=== PATIENT | female | born 1995 | race American Indian/Alaskan Native ===

== ENCOUNTER 2019-10-08 18:25 | Emergency (ER) | payer SELFPAY ==
[2019-10-08] MEDS ORDERED: Sodium Chloride 0.9% 10 ML Syringe FLUSH PRN (18:42)
[2019-10-08] MEDS ORDERED: MVI, Adult with Vitamin K 10 ML, Thiamine 100 MG, Folic Acid 1 MG in Lactated Ringers 1... IV ONE ×4 (18:43)
[2019-10-08 19:22] LABS: ANION GAP 12.4 mEq/L (7-13); CHLORIDE,CL 109 mmol/L (98-107); SODIUM,NA 143 mmol/L (136-145)
[2019-10-08 19:23] LABS: ACETAMINOPHEN 0 ug/mL (10-30 (Therapeutic))
[2019-10-08] MEDS ORDERED: LORazepam 2 MG/ML SDV IVPUSH ONE ×2 (19:32→19:54)
[2019-10-08] MEDS ORDERED: LORazepam 2 MG/ML SDV ONE (19:33)
[2019-10-08] MEDS ORDERED: diphenhydrAMINE 50 MG/ML SDV IVPUSH ONE (19:42)
[2019-10-08] MEDS ORDERED: Haloperidol Lactate 5 MG/ML SDV IM ONE (19:55)
[2019-10-08] MEDS ORDERED: Sodium Chloride 0.9% 1,000 ML IV ONE (20:04)
[2019-10-08] MEDS ORDERED: Midazolam 1 MG/ML 2 ML SDV IVPUSH ONE (20:04)
[2019-10-08] MEDS ORDERED: Midazolam 1 MG/ML 2 ML SDV ONE (20:10)
[2019-10-08 20:17] VITALS: BP 100/53; PULSE 92
--- NOTE | 2019-10-08 20:58 | CR ---
PROCEDURE INFORMATION: Exam: XR Chest, 1 View Exam date and time: 10/08/2019 8:49 PM Age: 24 years old Clinical indication: Other: Tube placement; Additional info: Post intubation TECHNIQUE: Imaging protocol: XR of the chest Views: 1 view. COMPARISON: No relevant prior studies available. FINDINGS: Tubes, catheters and devices: The endotracheal tube tip resides in the right mainstem bronchus. The endotracheal tube might be pulled back about 5.5 cm to position in the mid to distal trachea. The tip of the enteric tube resides in the proximal stomach. Lungs: There is moderate decreased volume and increased attenuation in the left lung diffusely. Pleural space: There are no pleural effusions present. Heart/Mediastinum: The heart is not enlarged. The pulmonary arteries are not enlarged. Bones/joints: Unremarkable IMPRESSION: 1. The tip of the endotracheal tube resides in the right mainstem bronchus. There is atelectatic change in the left lung diffusely. 2. The enteric tube tip resides in the proximal stomach.
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
== END 2019-10-08 21:07 ==
LOC: DL.ED 18:25
DX: R41.0 Disorientation, unspecified (principal); F15.10 Other stimulant abuse, uncomplicated; F10.10 Alcohol abuse, uncomplicated; Y90.8 Blood alcohol level of 240 mg/100 ml or more
CPT/HCPCS: 31500; 36415; 71045; 80053; 80305; 80307; 81001; 81025; 85025; 96361; 96365; 96372; 96375; 99283; 99285; J1200; J1630; J2060; J2250; J3411; J7030; J7120; 51702; J3490

== ENCOUNTER 2021-04-02 17:12 | Emergency (ER) | payer SELFPAY ==
[2021-04-02 17:54] LABS: AMPHETAMINES,URINE NEGATIVE (NEGATIVE); BARBITURATES,URINE NEGATIVE (NEGATIVE); BENZODIAZEPINE,URINE NEGATIVE (NEGATIVE); MDMA (ECSTASY), URINE NEGATIVE (NEGATIVE); METHADONE,URINE NEGATIVE (NEGATIVE); METHAMPHETAMINES,URINE NEGATIVE (NEGATIVE); OPIATES,URINE NEGATIVE (NEGATIVE); OXYCODONE,URINE NEGATIVE (NEGATIVE); PHENCYCLIDINE,URINE NEGATIVE (NEGATIVE); TCA,URINE NEGATIVE (NEGATIVE)
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
[2021-04-02 18:07] LABS: ANION GAP 16.3 mEq/L (7-13); CHLORIDE,CL 102 mmol/L (98-107); SODIUM,NA 140 mmol/L (136-145)
[2021-04-02 18:12] LABS: ACETAMINOPHEN 0 ug/mL (10-30 (Therapeutic))
[2021-04-02 18:25] VITALS: BP 133/94; PULSE 86
== END 2021-04-02 18:25 ==
LOC: DL.ED 17:12
DX: F10.99 Alcohol use, unspecified with unspecified alcohol-induced disorder (principal); Z20.822 Contact with and (suspected) exposure to COVID-19
CPT/HCPCS: 36415; 80053; 80143; 80179; 80305-QW; 80307; 81003; 81025; 85025; 99283; U0002